=== PATIENT | male | born 1950 | race Asian ===

== ENCOUNTER 2017-04-20 12:45 | Inpatient (IN) | payer OTHER ==
[~2017-04-20] VITALS: Ht 162.6 cm; Wt 37.3 kg
[2017-04-20 14:27] VITALS: BP 160/65; TEMP 98.5; Ht 162.6 cm; Wt 37.3 kg
[2017-04-20] MEDS ORDERED: PHOSLO667 MG PO (15:44)
[2017-04-20] MEDS ORDERED: FLUTMIS6 INH (15:44)
[2017-04-20] MEDS ORDERED: LIPITOR20 MG PO (15:44)
[2017-04-20] MEDS ORDERED: ACID CONTROL20 MG PO (15:46)
[2017-04-20] MEDS ORDERED: CAPTOPRIL25 MG PO (15:46)
[2017-04-20] MEDS ORDERED: BUDE1AER5 INH (15:48)
[2017-04-20] MEDS ORDERED: MEGE40TA32 PO (15:48)
[2017-04-20 16:00] VITALS: BP 145/63; TEMP 98.6
[2017-04-20 20:00] VITALS: BP 153/61; TEMP 98
--- NOTE | 2017-04-20 21:23 | NUR ---
IV D/C AT THIS TIME DUE TO INFILTRATION. ATTEMPTED TO GAIN NEW IV ACCESS BUT WAS UNABLE. 2225-DR. FERNANDEZ NOTIFIED OF PT NO LONGER HAVING IV ACCESS. ORDERS RECEIVED FOR PO ANTIBIOTICS AND TO LEAVE IV OUT.
[2017-04-21] VITALS: BP 144/60; TEMP 97.8
[2017-04-21 04:00] VITALS: BP 132/57; TEMP 98.2
[2017-04-21 08:00] VITALS: BP 147/63; TEMP 97.5
--- NOTE | 2017-04-21 09:30 | NUR ---
PT TO DIAYSIS VIA W/C PER ASHANTI ESCALANTE RN
[2017-04-21 10:55] LABS: POTASSIUM 3.8 mmol/L (3.6-5.2)
[2017-04-21 11:24] LABS: PLATELET COUNT 204 K/uL (142-355)
--- NOTE | 2017-04-21 15:30 | NUR ---
PT BACK INTO ROOM VIA W/C FROM DIALYSIS, REPORT RECEIVED FROM ASHANTI ESCALANTE RN
[2017-04-21 16:00] VITALS: BP 92/61; TEMP 98.3
--- NOTE | 2017-04-21 16:06 | NUR ---
PT REQUESTS TO NOT HAVE IV STARTED AND TO RECEIVE 2ND UNIT OF BLOOD ON MONDAY WITH DIALYSIS. MD AWARE AND NEW ORDERS TO LEAVE IV OUT
[2017-04-21 20:00] VITALS: BP 117/54; TEMP 100
[2017-04-22] VITALS: BP 130/46; TEMP 99.3
[2017-04-22 04:00] VITALS: BP 120/60; TEMP 98.9
--- NOTE | 2017-04-22 04:16 | NUR ---
PATIENT REFUSED FOUR AM TX, STATED HE NORMALLY DOESNT TAKE THEM THAT REGULAR AT HOME AND HE WOULD START BACK AT EIGHT AM TX
[2017-04-22 05:45] LABS: PLATELET COUNT 238 K/uL (142-355)
[2017-04-22 06:03] LABS: POTASSIUM 3.6 mmol/L (3.6-5.2)
[2017-04-22 08:00] VITALS: BP 123/53; TEMP 98.6
[2017-04-22 12:00] VITALS: BP 141/66; TEMP 98.5
[2017-04-22 16:00] VITALS: BP 137/77; TEMP 98.6
--- NOTE | 2017-04-22 16:21 | NUR ---
1615 RESPIRATORY TO VISIT FOR NEBULIZER TREATMENT.
[2017-04-22 20:00] VITALS: BP 135/64; TEMP 98.3
[2017-04-23] VITALS: BP 140/53; TEMP 98
[2017-04-23 04:00] VITALS: BP 158/75; TEMP 98
[2017-04-23 06:10] LABS: PLATELET COUNT 230 K/uL (142-355)
[2017-04-23 06:21] LABS: POTASSIUM 4.3 mmol/L (3.6-5.2)
[2017-04-23 08:00] VITALS: BP 151/73; TEMP 97.9
[2017-04-23 12:00] VITALS: BP 146/65; TEMP 97.4
--- NOTE | 2017-04-23 15:08 | NUR ---
1430 REPORT GIVEN TO NOLA VALDEZ RN. OPPORTUNITY TO ASK QUESTIONS GIVEN.
[2017-04-23 16:54] VITALS: BP 137/69; TEMP 98.2
[2017-04-23 20:00] VITALS: BP 168/73; TEMP 97.8
[2017-04-24] VITALS: BP 146/90; TEMP 98.2
[2017-04-24 04:00] VITALS: BP 146/64; TEMP 98
[2017-04-24 08:00] VITALS: BP 154/72; TEMP 97.6
[2017-04-24 10:38] LABS: POTASSIUM 5.1 mmol/L (3.6-5.2)
[2017-04-24 12:47] LABS: PLATELET COUNT 256 K/uL (142-355)
[2017-04-24 16:00] VITALS: BP 126/63; TEMP 99
[2017-04-24 20:00] VITALS: BP 148/69; TEMP 97.9
[2017-04-25] VITALS (7 sets, daily range): BP systolic 117–150; BP diastolic 61–70; TEMP 98–99.1
[2017-04-25 05:55] LABS: PLATELET COUNT 186 K/uL (142-355)
[2017-04-25 06:19] LABS: POTASSIUM 4.4 mmol/L (3.6-5.2)
[2017-04-26 04:00] VITALS: BP 137/62; TEMP 99
[2017-04-26 05:37] LABS: PLATELET COUNT 175 K/uL (142-355)
[2017-04-26 05:52] LABS: POTASSIUM 4.6 mmol/L (3.6-5.2)
[2017-04-26 08:00] VITALS: BP 156/60; TEMP 98
[2017-04-26 16:00] VITALS: BP 139/64; TEMP 97.8
[2017-04-26 20:00] VITALS: BP 136/68; TEMP 98.3
[2017-04-27] VITALS: BP 162/70; TEMP 98.1
[2017-04-27 04:00] VITALS: BP 134/60; TEMP 98.2
[2017-04-27 04:57] LABS: PLATELET COUNT 180 K/uL (142-355)
[2017-04-27 06:37] LABS: POTASSIUM 4.6 mmol/L (3.6-5.2)
[2017-04-27 07:43] VITALS: BP 130/55; TEMP 98.7
[2017-04-27 12:00] VITALS: BP 137/64; TEMP 98.5
[2017-04-27 16:20] VITALS: BP 142/76; TEMP 98.3
[2017-04-27 20:00] VITALS: BP 145/63; TEMP 97.5
[2017-04-28 00:27] VITALS: BP 143/64; TEMP 98.1
[2017-04-28 04:00] VITALS: BP 143/64; TEMP 97.7
[2017-04-28 05:00] LABS: PLATELET COUNT 191 K/uL (142-355)
[2017-04-28 08:00] VITALS: BP 151/62; TEMP 98
--- NOTE | 2017-04-28 09:20 | NUR ---
Pt. TRANSFERRED TO DIALYSIS VIA W/C.
--- NOTE | 2017-04-28 13:30 | NUR ---
Pt. RETURNED TO TROOM VIA W/C.
[2017-04-28 16:00] VITALS: BP 139/61; TEMP 98.4
--- NOTE | 2017-04-28 16:33 | NUR ---
DISCHARGE INSTRUCTIONS SIGNED AND GIVEN. Pt. EXIT OUT OF FRONT ENTRANCE VIA STRETCHER.
== END 2017-04-28 16:33 | disposition home or self-care (01) | DRG 193 ==
LOC: MED/SURG 12:45
PROVIDERS: Emergency Medicine; Internal Medicine Nephrology; ADMIT Internal Medicine
PROC: 30243N1 Transfusion of Nonautologous Red Blood Cells into Central Vein, Percutaneous Approach (ICD-10-PCS; principal; 2017-04-21)
PROC: 5A1D00Z (ICD-10-PCS; 2017-04-21)
PROC: 30243N1 Transfusion of Nonautologous Red Blood Cells into Central Vein, Percutaneous Approach (ICD-10-PCS; 2017-04-24)
PROC: 5A1D00Z (ICD-10-PCS; 2017-04-24)
PROC: 5A1D00Z (ICD-10-PCS; 2017-04-26)
PROC: 5A1D00Z (ICD-10-PCS; 2017-04-28)
DX: J18.8 Other pneumonia, unspecified organism (principal); N18.6 End stage renal disease; D64.89 Other specified anemias; J44.9 Chronic obstructive pulmonary disease, unspecified
CPT/HCPCS: 36415; 36430; 80048; 80053; 83735; 84100; 85007; 85027; 86850; 86900; 86901; 86922; 87070; 87205; 94640; 94664; 94668; 94760; 96372; J0696; J1644; P9016

== ENCOUNTER 2017-06-12 14:05 | Inpatient (IN) | payer OTHER ==
[~2017-06-12] VITALS: Ht 162.6 cm; Wt 39.1 kg
[2017-06-12 14:05] VITALS: BP 155/75; TEMP 97.8
[~2017-06-12 14:05] MED LIST: ACID CONTROL20 MG PO; BUDE1AER5 INH; CAPTOPRIL25 MG PO; FLUTMIS6 INH; LIPITOR20 MG PO; MEGE40TA32 PO; PHOSLO667 MG PO
[2017-06-12 15:05] VITALS: BP 151/75
[2017-06-12 15:10] LABS: PLATELET COUNT 206 K/uL (142-355)
[2017-06-12 16:05] VITALS: BP 152/77
[2017-06-12 16:12] LABS: POTASSIUM 4.6 mmol/L (3.6-5.2)
[2017-06-12 17:05] VITALS: BP 157/74
[2017-06-12 20:00] VITALS: BP 109/70; TEMP 98.5
[2017-06-12 22:54] VITALS: BP 109/70; TEMP 98.5; Ht 162.6 cm; Wt 39.1 kg
[2017-06-13] VITALS: BP 156/74; TEMP 98.8
[2017-06-13 04:00] VITALS: BP 150/77; TEMP 98.8
[2017-06-13 06:11] LABS: POTASSIUM 4.4 mmol/L (3.6-5.2)
[2017-06-13 06:12] LABS: PLATELET COUNT 220 K/uL (142-355)
[2017-06-13 08:00] VITALS: BP 156/70; TEMP 98.2
[2017-06-13] MEDS ORDERED: ASPIRIN 81 LOW81 MG PO (11:42)
[2017-06-13] MEDS ORDERED: METO50TA27 PO (11:42)
[2017-06-13] MEDS ORDERED: CLOP75TA2 PO (11:44)
[2017-06-13] MEDS ORDERED: SENSIPAR60 MG PO (11:44)
[2017-06-13 12:00] VITALS: BP 139/69; TEMP 98.6
[2017-06-13 16:00] VITALS: BP 122/69; TEMP 97.5
[2017-06-13 20:00] VITALS: BP 131/67; TEMP 98.5
[2017-06-14 00:19] VITALS: BP 127/73; TEMP 98.9
[2017-06-14 04:00] VITALS: BP 131/61; TEMP 98.2
[2017-06-14 06:21] LABS: PLATELET COUNT 281 K/uL (142-355)
[2017-06-14 08:00] VITALS: BP 142/68; TEMP 98.1
[2017-06-14 12:00] VITALS: BP 150/67; TEMP 97.7
[2017-06-14 16:00] VITALS: BP 138/64; TEMP 97.5
[2017-06-14 20:00] VITALS: BP 157/67; TEMP 97.7
[2017-06-15] VITALS (7 sets, daily range): BP systolic 99–145; BP diastolic 51–68; TEMP 97.8–98.7
[2017-06-15 05:46] LABS: PLATELET COUNT 253 K/uL (142-355)
[2017-06-15 06:20] LABS: POTASSIUM 4.1 mmol/L (3.6-5.2)
[2017-06-16] VITALS: BP 121/55; TEMP 98.8
[2017-06-16 04:00] VITALS: BP 144/64; TEMP 98.8
[2017-06-16 06:24] LABS: POTASSIUM 4.9 mmol/L (3.6-5.2)
[2017-06-16 06:49] LABS: PLATELET COUNT 283 K/uL (142-355)
[2017-06-16 08:00] VITALS: BP 139/59; TEMP 97.8
[2017-06-16 12:00] VITALS: BP 135/61; TEMP 97.5
[2017-06-16 16:00] VITALS: BP 105/51; TEMP 98.5
[2017-06-16 20:00] VITALS: BP 110/46; TEMP 99
[2017-06-17] VITALS: BP 111/58; TEMP 98.4
[2017-06-17 04:00] VITALS: BP 134/51; TEMP 98.3
[2017-06-17 04:38] LABS: PLATELET COUNT 254 K/uL (142-355)
[2017-06-17 04:52] LABS: POTASSIUM 4.5 mmol/L (3.6-5.2)
[2017-06-17 08:00] VITALS: BP 125/59; TEMP 98.4
[2017-06-17 12:00] VITALS: BP 118/57; TEMP 98
[2017-06-17 16:00] VITALS: BP 140/59; TEMP 98.3
== END 2017-06-17 16:12 | disposition home or self-care (01) | DRG 291 ==
LOC: ED 14:05 → MED/SURG 17:27
PROVIDERS: Emergency Medicine; ADMIT Specialist
DX: I50.21 Acute systolic (congestive) heart failure (principal); N18.6 End stage renal disease; J44.1 Chronic obstructive pulmonary disease with (acute) exacerbation; E46 Unspecified protein-calorie malnutrition; I12.0 Hypertensive chronic kidney disease with stage 5 chronic kidney disease or end stage renal disease; J81.0 Acute pulmonary edema; I25.10 Atherosclerotic heart disease of native coronary artery without angina pectoris; R09.02 Hypoxemia
CPT/HCPCS: 36415; 36591; 36600; 80053; 82550; 82805; 83735; 83880; 84132; 84484; 85027; 87040; 87070; 87077; 87186; 87205; 93306; 94640; 94664; 94760; 96367; 96375; 99284; J0692; J0885; J1644